=== PATIENT | female | born 1935 | race Caucasian/White ===

== ENCOUNTER 2017-11-24 19:45 | Emergency (ER) | payer MEDICARE, BC ==
[2017-11-24 23:51] LABS: ADD MAN DIFF? NO
[2017-11-24] MEDS: SOD CHLORIDE 0.9% 1,000 ML IV (23:52)
[2017-11-24 23:53] LABS: BASOPHILS % 0.3 % (0.0-2.0); EOSINOPHILS # 0.1 10^3/ul (0.0-0.5); EOSINOPHILS % 1.1 % (0.0-7.0); HEMATOCRIT 40.9 % (37.0-47.0); HEMOGLOBIN 13.7 g/dl (12.0-16.0); LYMPHOCYTES # 1.8 10^3/ul (0.8-2.9); LYMPHOCYTES % 19.9 % (15.0-51.0); MEAN CORPUSCULAR HEMOGLOBIN 33.4 pg (29.0-33.0); MEAN CORPUSCULAR HGB CONC 33.5 g/dl (32.0-37.0); MEAN CORPUSCULAR VOLUME 99.8 fl (82.0-101.0); MEAN PLATELET VOLUME 9.7 fl (7.4-10.4); MONOCYTE # 0.7 10^3/ul (0.3-0.9); MONOCYTES % 8.1 % (0.0-11.0); NEUTROPHIL # 6.2 10^3/ul (1.6-7.5); NEUTROPHILS % 70.3 % (39.0-77.0); PLATELET COUNT 160 10^3/UL (140-415); RED CELL DISTRIBUTION WIDTH 12.8 % (11.5-14.5)
[2017-11-24 23:53] LABS: WHITE BLOOD COUNT 8.8 10^3/ul (4.8-10.8)
[2017-11-24] MEDS: ONDANSETRON 4 MG INJ IV (23:53)
[2017-11-24] MEDS: morphine 4 MG/ML VIAL IV (23:53)
[2017-11-25 00:29] LABS: ALANINE AMINOTRANSFERASE 41 IU/L (13-69); ALBUMIN 4.3 g/dl (3.3-4.9); ALBUMIN/GLOBULIN RATIO 1.59; ALKALINE PHOSPHATASE 55 IU/L (42-121); ANION GAP 17 (8-16); ASPARTATE AMINO TRANSFERASE 35 IU/L (15-46); BLOOD UREA NITROGEN 23 mg/dl (7-20); CALCIUM 9.8 mg/dl (8.4-10.2); CARBON DIOXIDE 32 mmol/L (21-31); CHLORIDE 98 mmol/L (97-110); CREATININE 0.93 mg/dl (0.44-1.00); GLUCOSE 91 mg/dl (70-220); LIPASE 146 U/L (23-300); POTASSIUM 3.9 mmol/L (3.5-5.1); SODIUM 143 mmol/L (135-144)
[2017-11-25 00:44] LABS: LACTIC ACID 1.1 mmol/L (0.5-2.0)
[2017-11-25 04:54] LABS: URINE PH (Dip) POC 6.5 (5.0-8.5)
[2017-11-25 04:54] LABS: URINE BLOOD (Dip) POC Trace-intact (NEGATIVE); URINE GLUCOSE (Dip) POC Negative (NEGATIVE); URINE KETONES (Dip) POC Negative (NEGATIVE); URINE LEUKOCYTE EST (Dip) POC Negative (NEGATIVE); URINE NITRITE (Dip) POC Negative (NEGATIVE); URINE TOTAL PROTEIN POC Negative (NEGATIVE)
[2017-11-25] MEDS: KETOROLAC 15 MG INJ IV (05:32)
== END 2017-11-25 06:02 | disposition home or self-care (01) ==
LOC: E/R 19:45
DX: E86.0 Dehydration (principal); K80.20 Calculus of gallbladder without cholecystitis without obstruction; I10 Essential (primary) hypertension; Z79.82 Long term (current) use of aspirin
CPT/HCPCS: 36415; 74176; 80053; 81003; 83605; 83690; 85025; 96374; 96375; 99285-25

== ENCOUNTER 2018-08-08 12:08 | Day surgery (SDC) | payer MEDICARE, BC ==
[2018-08-08] MEDS: LACTATED RINGER'S 1,000 ML IV (13:30)
[2018-08-08] MEDS ORDERED: ROPIVACAINE 0.2% 20 ML VIAL (13:31)
[2018-08-08] MEDS ORDERED: FENTAnyl 50 MCG/ML VIAL (13:31)
[2018-08-08] MEDS ORDERED: PROPOFOL 20 ML (13:31)
[2018-08-08] MEDS ORDERED: ROCURONIUM 50 MG INJ (13:31)
[2018-08-08] MEDS ORDERED: EPHEDrine SULFATE 50 MG/5 ML SYG IV (14:00)
[2018-08-08] MEDS ORDERED: DIPHENHYDRAMINE 50 MG INJ IV (14:00)
[2018-08-08] MEDS ORDERED: ONDANSETRON 4 MG INJ IV ×2 (14:00→16:00)
[2018-08-08] MEDS ORDERED: FENTAnyl 50 MCG/ML VIAL IV ×3 (14:00)
[2018-08-08] MEDS ORDERED: LABETALOL HCL 20MG INJ IV (14:00)
[2018-08-08] MEDS ORDERED: OXYCODONE/ACETAMINOPHEN (5/325) TAB PO (14:00)
[2018-08-08] MEDS ORDERED: hydrALAzine 20 MG INJ IV (14:00)
[2018-08-08] MEDS ORDERED: METOCLOPRAMIDE 10 MG INJ IV (14:00)
[2018-08-08] MEDS ORDERED: HYDROmorphONE 1 MG/5 ML IV SYRINGE IV ×2 (14:00)
[2018-08-08] MEDS ORDERED: PHENYLephrine (100 MCG/ML) 5ML SYG (15:05)
[2018-08-08] MEDS ORDERED: CEFAZOLIN 1 GM INJ (15:05)
[2018-08-08] MEDS ORDERED: metroNIDAZOLE 500 MG/NS (PMX) 100 ML IVPB ×2 (15:07→15:31)
[2018-08-08] MEDS: BUPIVACAINE 0.25%/EPI (SDV) 30 ML INJ (15:22)
[2018-08-08] MEDS: LIDOCAINE 1% (MPF) 30 ML INJ (15:24)
[2018-08-08] MEDS ORDERED: ONDANSETRON 4 MG INJ (15:31)
[2018-08-08] MEDS ORDERED: METOCLOPRAMIDE 10 MG INJ (15:31)
[2018-08-08] MEDS ORDERED: ACETAMINOPHEN 1000MG/100ML IV 100 ML (15:31)
[2018-08-08] MEDS ORDERED: DEXAMETHASONE 4 MG/ML 1 ML INJ (15:31)
[2018-08-08] MEDS ORDERED: SUGAMMADEX SODIUM 200 MG/2 ML VIAL IV (15:32)
[2018-08-08] MEDS ORDERED: HYDROCODONE/APAP (5/325) TAB PO ×2 (16:00)
[2018-08-08] MEDS ORDERED: morphine 10 MG INJ IM (16:00)
[2018-08-08] MEDS: HYDROmorphONE 1 MG/5 ML IV SYRINGE IV ×2 (16:16→16:31)
[2018-08-08] MEDS: MEPERIDINE 25 MG INJ IV (16:16)
[2018-08-08] MEDS: OXYCODONE/ACETAMINOPHEN (5/325) TAB PO (17:13)
== END 2018-08-08 18:20 | disposition home or self-care (01) ==
LOC: SDS 12:08
DX: K80.10 Calculus of gallbladder with chronic cholecystitis without obstruction (principal); I10 Essential (primary) hypertension; J44.9 Chronic obstructive pulmonary disease, unspecified; F41.8 Other specified anxiety disorders
CPT/HCPCS: 47562; 88304; 88307; 88313